=== PATIENT | male | born 1950 | race Hispanic/Latino ===

== ENCOUNTER 2017-09-21 13:46 | Inpatient (IN) | payer MEDICAID, MEDICARE ==
[2017-09-21] MEDS ORDERED: Albuterol-Ipratrop 3 mg / 0.5 (3 ml) UD ONE (13:53)
[2017-09-21] MEDS ORDERED: Albuterol-Ipratrop 3 mg / 0.5 (3 ml) UD IH STA ×3 (13:54→13:55)
--- NOTE | 2017-09-21 14:00 | ED PDOC ---
HPI: SOB/CHF/COPD Time Seen by Provider: 09/21/17 13:48 Chief Complaint (Nursing): Cough, Cold, Congestion Chief Complaint (Provider): Shortness of Breath History Per: Patient History/Exam Limitations: no limitations Onset/Duration Of Symptoms: Days (x3) Current Symptoms Are (Timing): Still Present Additional Complaint(s): Justin Santana is a 67 year old male with a history of asthma that presents to the ED with a chief complaint of shortness of breath associated with a nonproductive cough that he has been experiencing for the past three days. Patient reports that he ran out of his inhaler months ago. He denies any fever, chest pain, or leg swelling. Past Medical History Vital Signs: Last Vital Signs Temp Pulse 105 H 09/21/17 13:53 Resp 24 09/21/17 13:53 BP 154/97 H 09/21/17 13:53 Pulse Ox 95 09/21/17 14:03 - Medical History PMH: Asthma - Family History Family History: States: Unknown Family Hx - Home Medications Home Medications: Ambulatory Orders Medication Instructions Recorded No Known Home Med 09/21/17 - Allergies Allergies/Adverse Reactions: Allergies Allergy/AdvReac Type Severity Reaction Status Date / Time Unobtainable Allergy Verified 09/21/17 13:53 Review of Systems Constitutional: Negative for: Fever Cardiovascular: Negative for: Chest Pain, Edema (denies pedal edema) Respiratory: Positive for: Cough (non-productive), Shortness of Breath Physical Exam - Reviewed Nursing Documentation Reviewed: Yes Vital Signs Reviewed: Yes - Physical Exam Appears: Positive for: Non-toxic, No Acute Distress Head Exam: Positive for: ATRAUMATIC, NORMOCEPHALIC Skin: Positive for: Normal Color, Warm Eye Exam: Positive for: Normal appearance, EOMI, PERRL Cardiovascular/Chest: Positive for: Regular Rate, Rhythm. Negative for: Murmur Respiratory: Positive for: Rhonchi, Wheezing (expiratory wheezing), Respiratory Distress (Moderate). Negative for: Normal Breath Sounds Gastrointestinal/Abdominal: Positive for: Normal Exam, Soft. Negative for: Tenderness Extremity: Positive for: Normal ROM. Negative for: Tenderness, Swelling Neurologic/Psych: Positive for: Alert (awake, alert), Oriented (x3). Negative for: Motor/Sensory Deficits - Laboratory Results Result Diagrams: 09/21/17 14:00 09/21/17 14:00 - ECG O2 Sat by Pulse Oximetry: 95 (RA) Pulse Ox Interpretation: Normal Medical Decision Making Medical Decision Making: Impression: Asthma Exacerbation Plan: * Chest X-Ray * EKG * CMP * CBC * ABG * Troponin I * Duoneb, three tx of 3 ml INH * Solumedrol 125 mg IV * Reevaluation EKG shows sinus tachycardia at 102 bpm with no acute ST changes. Scribe Attestation: Documented by Ann Marie Hernandez, acting as a scribe for Kareem Walton MD. Provider Scribe Attestation: All medical record entries made by the Scribe were at my direction and personally dictated by me. I have reviewed the chart and agree that the record accurately reflects my personal performance of the history, physical exam, medical decision making, and the department course for this patient. I have also personally directed, reviewed, and agree with the discharge instructions and disposition. Disposition - Clinical Impression Clinical Impression: COPD exacerbation - Patient ED Disposition Is Patient to be Admitted: Yes - Disposition Disposition Time: 15:16 Condition: FAIR Forms: [employer] (Tajik) - Pt Status Changed To: Hospital Disposition Of: Observation - POA Present On Arrival: None
[2017-09-21 14:05] LABS: BASO # 0.1 K/uL (0.0-0.2); BASO % 0.9 % (0.0-2.0); EOS % 7.8 % (0.0-4.0); HEMATOCRIT 41.5 % (35.0-51.0); LYMPH # 1.3 K/uL (1.0-4.3); LYMPH % 10.3 % (20.0-40.0); MEAN CELL VOLUME 83.3 fl (80.0-94.0); MEAN CORPUSCULAR HEMOGLOBIN 27.8 pg (27.0-31.0); MEAN CORPUSCULAR HGB CONC 33.4 g/dL (33.0-37.0); MEAN PLATELET VOLUME 7.7 fl (7.2-11.7); MONO # 1.2 K/uL (0.0-0.8); MONO % 9.4 % (0.0-10.0); NEUT % 71.6 % (50.0-75.0); RED CELL DISTRIBUTION WIDTH 14.5 % (11.5-14.5); WHITE BLOOD COUNT 12.5 K/uL (4.8-10.8)
[2017-09-21] MEDS ORDERED: Sodium Chloride 0.9% 1,000 ML IV STA (14:11)
[2017-09-21 14:14] LABS: ALB/GLOB RATIO 1.3 (1.0-2.1); ALKALINE PHOSPHATASE 119 U/L (38-126); ALT/SGPT 24 U/L (21-72); AST/SGOT 17 U/L (17-59); BILIRUBIN,TOTAL 0.6 mg/dl (0.2-1.3); BLOOD UREA NITROGEN 16 mg/dl (9-20); CALCIUM 8.8 mg/dL (8.4-10.2); CARBON DIOXIDE 29 mmol/L (22-30); CHLORIDE 106 mmol/L (98-107); GFR AFRICAN-AMERICAN > 60; GLUCOSE,RANDOM 100 mg/dL (75-110); POTASSIUM 4.1 MMOL/L (3.6-5.0); SODIUM 148 mmol/l (132-148); TOTAL PROTEIN 7.6 G/DL (6.3-8.2)
[2017-09-21 14:21] LABS: ABG ALLEN TEST YES; ARTERIAL BLOOD GAS HCO3 27.2 mmol/L (21-28); ARTERIAL BLOOD GAS MODE 6L NEB TX; ARTERIAL BLOOD GAS O2 CAPACITY 18.6 mL/dL (16-24); ARTERIAL BLOOD GAS O2 CONTENT 18.3 ML/dL (15-23); ARTERIAL BLOOD GAS PO2 75 mm/Hg (80-100); ARTERIAL BLOOD HGB O2 SAT 93.5 % (95.0-98.0); CARBOXYHEMOGLOBIN 3.2 % (0.5-1.5); HHB 1.4 % (0.0-5.0); METHEMOGLOBIN 1.9 % (0.0-3.0)
--- NOTE | 2017-09-21 14:25 | RAD ---
HISTORY: cough COMPARISON: No prior. FINDINGS: LUNGS: The lungs are well inflated. There are increased interstitial markings in the lungs. No focal consolidation. PLEURA: No significant pleural effusion identified, no pneumothorax apparent. CARDIOVASCULAR: Normal. OSSEOUS STRUCTURES: No significant abnormalities. VISUALIZED UPPER ABDOMEN: Normal. OTHER FINDINGS: None. IMPRESSION: Findings are most compatible with COPD. No active pulmonary disease.
[2017-09-21] MEDS ORDERED: guaiFENesin 200 mg/10 ml Syrup UD PO PRN (15:38)
[2017-09-21] MEDS ORDERED: methylPREDNISolone 60 MG in Sodium Chloride 0.9% 50 ML IV SCH (15:45)
--- NOTE | 2017-09-21 16:04 | CP.PCM.HP ---
History of Present Illness - History of Present Illness History of Present Illness: CC: Shortness of breath This is a 67 year old male with a past medical history of asthma/COPD, long time smoker, who presents to the ED with the complaint of 3 days of worsening shortness of breath along with a nonproductive cough. The patient states that he has run of of his inhaler months ago. He says that the colder weather has made his breathing much worse yesterday and today. He denies any headache, fever , chest pains, leg pain or swelling, recent travel. In the ED, the patient was found to be saturating 92% on room air although he was only speaking 3 words between breaths. He was found to be diffusely wheezing and in moderate respiratory distress. He also complains of difficulty hearing out of his right ear. After nebulizer treatments and steroids, he felt improved but continues to have diffuse wheezing and shortness of breath. He is to be placed on observation for continued monitoring and treatment with duonebs and IV steroids. ROS as below Present on Admission - Present on Admission Any Indicators Present on Admission: No Review of Systems - Hematologic/Lymphatic Additional comments: GENERAL/CONSTITUTIONAL: The patient denies fever, fatigue, weakness, weight gain or weight loss. HEAD, EYES, EARS, NOSE AND THROAT: Eyes - The patient denies pain, redness, loss of vision, double or blurred vision, flashing lights or spots, dryness, Ears, nose, mouth and throat. + The patient admits to decreased hearing in the left ear. He admits to post nasal drip. The patient denies ringing in the ears, nosebleeds, loss of sense of smell, dry sinuses, sinusitis, CARDIOVASCULAR: The patient denies chest pain, chest pressure, or irregular heartbeats, RESPIRATORY: Admits to wheezing and The patient denies chronic dry cough, coughing up blood, coughing up mucus, wheezing, or shortness of breath. GASTROINTESTINAL: The patient denies decreased appetite, nausea, vomiting, vomiting blood or coffee ground material, heartburn, regurgitation, diarrhea, constipation, gas, blood in the stools, black tarry stools. GENITOURINARY: The patient denies difficult urination, pain or burning with urination, blood in the urine, frequency, or urgency MUSCULOSKELETAL: The patient denies arm, buttock, thigh or calf cramps. No joint or muscle pain. No muscle weakness or tenderness. No joint swelling, neck pain, back pain. SKIN: The patient denies easy bruising, skin redness, skin rash, hives, sensitivity to sun exposure, tightness, nodules or bumps, hair loss, color changes in the hands or feet with cold. NEUROLOGIC: The patient denies headache, dizziness, fainting, muscle spasm, loss of consciousness, sensitivity or pain in the hands and feet or memory loss. PSYCHIATRIC: The patient denies anxiety, depression, or thoughts of suicide. ENDOCRINE: The patient denies intolerance to hot or cold temperature, flushing, fingernail changes, increased thirst, increased salt intake or decreased sexual desire. HEMATOLOGIC/LYMPHATIC: The patient denies anemia, bleeding tendency or clotting tendency. ALLERGIC/IMMUNOLOGIC: The patient denies rhinitis, asthma, skin sensitivity, latex allergies or sensitivity. Past Patient History - Infectious Disease Hx of Infectious Diseases: None - Past Social History Smoking Status: Light Smoker < 10 Cigarettes Daily - CARDIAC Hx Cardiac Disorders: No - PULMONARY Hx Respiratory Disorders: Yes (asthma,copd) - NEUROLOGICAL Hx Neurological Disorder: No - HEENT Hx HEENT Problems: No - RENAL Hx Chronic Kidney Disease: No - ENDOCRINE/METABOLIC Hx Endocrine Disorders: No - HEMATOLOGICAL/ONCOLOGICAL Hx Blood Disorders: No - INTEGUMENTARY Hx Dermatological Problems: No - MUSCULOSKELETAL/RHEUMATOLOGICAL Hx Musculoskeletal Disorders: No - GENITOURINARY/GYNECOLOGICAL Hx Genitourinary Disorders: No - PSYCHIATRIC Hx Psychophysiologic Disorder: No - SURGICAL HISTORY Hx Surgeries: No - ANESTHESIA Hx Anesthesia: No Meds Allergies/Adverse Reactions: Allergies Allergy/AdvReac Type Severity Reaction Status Date / Time No Known Allergies Allergy Verified 09/21/17 15:41 Physical Exam - Additional Findings Additional findings: Physical exam: Constitutional- cooperative, awake, alert. Head- NCAT, PERRL Eye- PERRL, normal accommodation ENT- Left ear cerumen impaction. Poor dental hygeine. Some mild throat erythema Neck- normal inspection, supple, no JVD Respiratory- CTAB, no wheezes rales rhonchi Cardiovascular- RRR, +S1, +S2 no MRG GI/Abdominal- normal bowel sounds, soft, protuberant, no mass, no hsm Skin- warm, dry Extremities Exam- normal capillary refill, normal inspection Neurological Exam- alert, CN II-XII intact Psych- normal mood, normal affect Results - Vital Signs Recent Vital Signs: Last Vital Signs Temp Pulse 105 H 09/21/17 15:37 Resp 24 09/21/17 15:37 BP 154/97 H 09/21/17 15:37 Pulse Ox 95 09/21/17 15:17 - Labs Result Diagrams: 09/21/17 14:00 09/21/17 14:00 Labs: Laboratory Results - last 24 hr 09/21/17 09/21/17 09/21/17 14:00 14:00 14:14 WBC 12.5 H RBC 4.98 Hgb 13.9 Hct 41.5 MCV 83.3 MCH 27.8 MCHC 33.4 RDW 14.5 Plt Count 269 MPV 7.7 Neut % (Auto) 71.6 Lymph % (Auto) 10.3 L [place] % (Auto) 9.4 Eos % (Auto) 7.8 H Baso % (Auto) 0.9 Neut # 9.0 H Lymph # 1.3 [place] # 1.2 H Eos # 1.0 H Baso # 0.1 pCO2 46 H pO2 75 L HCO3 27.2 ABG pH 7.40 ABG Total CO2 29.9 H ABG O2 Saturation 98.5 H ABG O2 Content 18.3 ABG Base Excess 3.0 ABG Hemoglobin 13.9 ABG Carboxyhemoglobin 3.2 H POC ABG HHb (Measured) 1.4 ABG Methemoglobin 1.9 ABG O2 Capacity 18.6 [place] Test Yes A-a O2 Difference 181.0 Hgb O2 Saturation 93.5 L Vent Mode 6l neb tx FiO2 44.0 Sodium 148 Potassium 4.1 Chloride 106 Carbon Dioxide 29 Anion Gap 17 BUN 16 Creatinine 1.0 Est GFR ( Amer) > 60 Est GFR (Non-Af Amer) > 60 Random Glucose 100 Calcium 8.8 Total Bilirubin 0.6 AST 17 ALT 24 Alkaline Phosphatase 119 Troponin I < 0.0120 Total Protein 7.6 Albumin 4.2 Globulin 3.4 Albumin/Globulin Ratio 1.3 Influenza Typ A,B (EIA) 09/21/17 15:30 WBC RBC Hgb Hct MCV MCH MCHC RDW Plt Count MPV Neut % (Auto) Lymph % (Auto) [place] % (Auto) Eos % (Auto) Baso % (Auto) Neut # Lymph # [place] # Eos # Baso # pCO2 pO2 HCO3 ABG pH ABG Total CO2 ABG O2 Saturation ABG O2 Content ABG Base Excess ABG Hemoglobin ABG Carboxyhemoglobin POC ABG HHb (Measured) ABG Methemoglobin ABG O2 Capacity [place] Test A-a O2 Difference Hgb O2 Saturation Vent Mode FiO2 Sodium Potassium Chloride Carbon Dioxide Anion Gap BUN Creatinine Est GFR ( Amer) Est GFR (Non-Af Amer) Random Glucose Calcium Total Bilirubin AST ALT Alkaline Phosphatase Troponin I Total Protein Albumin Globulin Albumin/Globulin Ratio Influenza Typ A,B (EIA) Negative for flu a/b Assessment & Plan - Assessment and Plan (Free Text) Plan: ASSESSMENT - Acute COPD exacerbation without evidence of infection - Left ear cerumen impaction - Severe obesity, BMI 40.4 - history of tobacco abuse PLAN - Tele/observation - Continue IV Solu medrol 60 mg IV q8 hours - Duonebs q 6 hours around the clock - Guaifenesin 200 mg po q6h PRN cough/congestion - Flonase 1 spray BYRON BID - Continue IV hydration overnight with normal saline at 100 cc/hour - Nasal cannula 2 liters, with pulse ox checks q 8 hours - Debrox 5 drops BID for cerumen impaction - Heparin SQ 5000 units q 12 hours - Estimated LOS < 24 hours
--- NOTE | 2017-09-21 16:32 | CARD ---
APPROVED REPORT EKG Measurement Heart [id number] <Conclusion> Sinus tachycardia Otherwise normal ECG
[2017-09-21] MEDS: Carbamide Peroxide OTIC SOLUTION AS SCH (19:34)
[2017-09-21] MEDS: Albuterol-Ipratrop 3 mg / 0.5 (3 ml) UD INH SCH (21:00)
[2017-09-22 06:15] LABS: HEMATOCRIT 38.7 % (35.0-51.0); MEAN CELL VOLUME 84.5 fl (80.0-94.0); MEAN CORPUSCULAR HEMOGLOBIN 27.6 pg (27.0-31.0); MEAN CORPUSCULAR HGB CONC 32.6 g/dL (33.0-37.0); RED CELL DISTRIBUTION WIDTH 14.4 % (11.5-14.5); WHITE BLOOD COUNT 13.2 K/uL (4.8-10.8)
[2017-09-22 06:19] LABS: BLOOD UREA NITROGEN 20 mg/dl (9-20); CALCIUM 8.5 mg/dL (8.4-10.2); CARBON DIOXIDE 25 mmol/L (22-30); CHLORIDE 108 mmol/L (98-107); GFR AFRICAN-AMERICAN > 60; GLUCOSE,RANDOM 204 mg/dL (75-110); POTASSIUM 3.8 MMOL/L (3.6-5.0); SODIUM 144 mmol/l (132-148)
[2017-09-22] MEDS: Albuterol-Ipratrop 3 mg / 0.5 (3 ml) UD INH SCH ×4 (07:42→19:30)
[2017-09-22] MEDS: Carbamide Peroxide OTIC SOLUTION AS SCH ×2 (08:39→17:02)
[2017-09-22] MEDS ORDERED: Azithromycin 500 MG in Sodium Chloride 0.9% 250 ML IVPB STA (11:55)
[2017-09-22] MEDS ORDERED: cefTRIAXone IV 1 gm in Dextros 50 ML IVPB STA (11:58)
[2017-09-22] MEDS ORDERED: Sodium Chloride 3% for Inhalation 4 ML VIAL.NEB IH PRN (12:16)
--- NOTE | 2017-09-22 12:16 | CP.PCM.PN ---
Subjective - Date & Time of Evaluation Date of Evaluation: 09/22/17 Time of Evaluation: 11:30 - Subjective Subjective: Pt feels better however still with cough and SOB complains of generalized bodyaches denies CP no abd pain no headache stopped smoking a few days ago when he started getting SOB Objective - Vital Signs/Intake and Output Vital Signs (last 24 hours): Temp Pulse Resp BP Pulse Ox 97.6 F 87 18 161/91 H 93 L 09/22/17 08:11 09/22/17 09:00 09/22/17 08:11 09/22/17 08:11 09/22/17 08:11 - Medications Medications: Current Medications Acetaminophen (Tylenol 325mg Tab) 650 mg PO Q6 PRN PRN Reason: Pain, Mild (1-3) Last Admin: 09/22/17 08:57 Dose: 650 mg Albuterol/Ipratropium (Duoneb 3 Mg/0.5 Mg (3 Ml) Ud) 3 ml INH RQID SALLY Last Admin: 09/22/17 11:05 Dose: 3 ml Carbamide Peroxide (Debrox Ear Drops) 5 drop BID SALLY Last Admin: 09/22/17 08:39 Dose: 5 drop Fluticasone Propionate (Flonase) 1 spr BYRON BID SALLY Last Admin: 09/22/17 08:39 Dose: 1 spr Guaifenesin (Robitussin) 200 mg PO Q6 PRN PRN Reason: Cough Heparin Sodium (Porcine) (Heparin) 5,000 units SC Q12 SALLY PRN Reason: Protocol Last Admin: 09/22/17 08:40 Dose: Not Given Azithromycin 500 mg/ Sodium (Chloride) 250 mls @ 250 mls/hr IVPB STAT STA PRN Reason: Protocol Stop: 09/22/17 12:54 Ceftriaxone Sodium (Rocephin Iv 1 Gm Duplex) 50 mls @ 50 mls/hr IVPB STAT STA PRN Reason: Protocol Stop: 09/22/17 12:57 Ceftriaxone Sodium (Rocephin Iv 1 Gm Duplex) 50 mls @ 50 mls/hr IVPB DAILY SALLY PRN Reason: Protocol Azithromycin 500 mg/ Sodium (Chloride) 250 mls @ 250 mls/hr IVPB DAILY SALLY PRN Reason: Protocol Methylprednisolone (Solu-Medrol) 60 mg IV Q8H SALLY Last Admin: 09/22/17 08:41 Dose: 60 mg - Labs Labs: 09/22/17 05:10 09/22/17 05:10 - Constitutional Appears: No Acute Distress, Older Than Stated Age - Head Exam Head Exam: NORMAL INSPECTION, NORMOCEPHALIC - Eye Exam Eye Exam: EOMI, Normal appearance Pupil Exam: NORMAL ACCOMODATION - ENT Exam ENT Exam: Mucous Membranes Moist, Normal External Ear Exam - Neck Exam Neck Exam: Full ROM. absent: Meningismus - Respiratory Exam Respiratory Exam: Rhonchi, Wheezes, NORMAL BREATHING PATTERN. absent: Respiratory Distress - Cardiovascular Exam Cardiovascular Exam: REGULAR RHYTHM, +S1, +S2 - GI/Abdominal Exam GI & Abdominal Exam: Soft, Normal Bowel Sounds. absent: Tenderness - Extremities Exam Extremities Exam: Full ROM, Normal Capillary Refill. absent: Calf Tenderness, Pedal Edema - Back Exam Back Exam: Full ROM. absent: CVA tenderness (L), CVA tenderness (R), vertebral tenderness - Neurological Exam Neurological Exam: Alert, Awake, CN II-XII Intact, Oriented x3 Neuro motor strength exam: Left Upper Extremity: 5, Right Upper Extremity: 5, Left Lower Extremity: 5, Right Lower Extremity: 5 - Psychiatric Exam Psychiatric exam: Normal Affect, Normal Mood - Skin Skin Exam: Dry, Normal Color, Warm Assessment and Plan (1) COPD exacerbation Status: Acute (2) Acute bronchitis Status: Acute (3) HTN (hypertension) Status: Chronic (4) DVT prophylaxis Status: Acute - Assessment and Plan (Free Text) Assessment: 67 y/o gent , smoker, came in because of fever, cough and SOB, found to be wheezing and and sat 92% on RA. (1) COPD exacerbation Status: Acute pt persistently wheezing and with cough but states better cont IV Solumedrol cont RTC Duoneb (2) Acute bronchitis r/o CAP Status: Acute CXR : COPD chnages, no infiltrate Pt came in with cough , fever , leukocytosis and dyspnea rpt CXR start IV Azithro and Ceftriaxone (3) HTN (hypertension) Status: Chronic start Norvasc 5 mg daily (4) DVT prophylaxis Status: Acute Lovenox
--- NOTE | 2017-09-22 16:19 | RAD ---
HISTORY: cough, fever r/o PNA COMPARISON: 09/21/2017 TECHNIQUE: Chest PA and lateral FINDINGS: LUNGS: Linear scar/atelectasis at lateral left lung base. No pulmonary infiltrate. PLEURA: No significant pleural effusion identified. No pneumothorax apparent. CARDIOVASCULAR: Normal. OSSEOUS STRUCTURES: No significant abnormalities. VISUALIZED UPPER ABDOMEN: Normal. OTHER FINDINGS: None. IMPRESSION: No active disease.
[2017-09-23] MEDS: Albuterol-Ipratrop 3 mg / 0.5 (3 ml) UD INH SCH ×4 (07:41→19:25)
--- NOTE | 2017-09-23 07:45 | PQF GENQUE ---
This form is a permanent part of the medical record 09/23/17 Dr. Chan, Please clarify the TYPE and ACUITY of Asthma if known. Patient with a history of Asthma/ COPD presents with worsening SOB and nonproductive cough. Ran out of his inhaler months ago. Found to be diffusely wheezing .Temp 100.1, WBC 12.5, CXR: No acitve disease. Treated with O2, Nebulizers, Solumedrol, IVAB and Flonase. Clarification of your documentation is requested to better reflect the severity of illness and intensity of treatment of your patient. Indicators present [] Specify: [] [] Specify: [] [] Specify: [] [] Specify: [] Location in the medical record that reflects the above clinical findings: [] Treatment Provided: [] PHYSICIAN'S RESPONSE 1. Please clarify type of asthma: [] Childhood [] Cough variant [] Exercise induced [] Late onset [x] Mild intermittent [] Mild persistent [] Moderate persistent [] Severe persistent [] With bronchitis(please clarify acuity of bronchitis) [] With chronic lung disease (please document specific chronic lung disease ) [] Other (please specify) [] Clinically unable to determine [] Unknown 2. Please clarify acuity of asthma: [] Uncomplicated [] With exacerbation(acute) [] With status asthmaticus [] Other (please specify) [x] Clinically unable to determine [] Unknown Based on your medical judgment of the clinical indicators outlined above please clarify the following: [] Practitioner response [] If unable to determine, please check the box, sign and date. Present On Admission (POA) Indicator: [] Present at the time of admission [] Not present at the time of admission [] Clinically Undetermined In responding to this query, please exercise your independent professional judgment. The fact that a question is asked does not imply that any particular answer is desired or expected. Thank you for your clarification on this documentation. If you have any questions please call:ext [phone] * Thank you, Jael Maria RN CDMP MTDD
[2017-09-23] MEDS: Azithromycin 500 MG in Sodium Chloride 0.9% 250 ML IVPB SCH (10:01)
[2017-09-23] MEDS: Carbamide Peroxide OTIC SOLUTION AS SCH ×2 (10:02→17:39)
[2017-09-23] MEDS: cefTRIAXone IV 1 gm in Dextros 50 ML IVPB SCH (10:04)
--- NOTE | 2017-09-23 11:26 | CP.PCM.PN ---
Subjective - Date & Time of Evaluation Date of Evaluation: 09/23/17 Time of Evaluation: 11:00 - Subjective Subjective: Today Mr. Santana is still complaining of some shortness of breath. He continues to have significant wheezing bilaterally. He says that his breathing has improved somewhat with the nebulizer treatments and IV steroids. He was able to saturate 92% on room air today during walking trial. He denies any chest pain, weakness, headache. Due to his significant wheezing he will require at least another 24 hours of IV steroids and continued nebulizer therapy. Objective - Vital Signs/Intake and Output Vital Signs (last 24 hours): Temp Pulse Resp BP Pulse Ox 97.7 F 74 18 152/89 H 97 09/23/17 08:00 09/23/17 10:03 09/23/17 08:00 09/23/17 10:03 09/23/17 08:00 - Medications Medications: Current Medications Acetaminophen (Tylenol 325mg Tab) 650 mg PO Q6 PRN PRN Reason: Pain, Mild (1-3) Last Admin: 09/22/17 08:57 Dose: 650 mg Albuterol/Ipratropium (Duoneb 3 Mg/0.5 Mg (3 Ml) Ud) 3 ml INH RQID [facility] Last Admin: 09/23/17 11:01 Dose: 3 ml Amlodipine Besylate (Norvasc) 5 mg PO DAILY SALLY Last Admin: 09/23/17 10:03 Dose: 5 mg Carbamide Peroxide (Debrox Ear Drops) 5 drop BID SALLY Last Admin: 09/23/17 10:02 Dose: 5 drop Fluticasone Propionate (Flonase) 1 spr BYRON BID SALLY Last Admin: 09/23/17 10:03 Dose: 1 spr Guaifenesin (Robitussin) 200 mg PO Q6 PRN PRN Reason: Cough Heparin Sodium (Porcine) (Heparin) 5,000 units SC Q12 SALLY PRN Reason: Protocol Last Admin: 09/23/17 10:03 Dose: Not Given Ceftriaxone Sodium (Rocephin Iv 1 Gm Duplex) 50 mls @ 50 mls/hr IVPB DAILY SALLY PRN Reason: Protocol Last Admin: 09/23/17 10:04 Dose: 50 mls/hr Azithromycin 500 mg/ Sodium (Chloride) 250 mls @ 250 mls/hr IVPB DAILY SALLY PRN Reason: Protocol Last Admin: 10/31/17 10:01 Dose: 250 mls/hr Ibuprofen (Motrin Tab) 400 mg PO Q6 PRN PRN Reason: Pain, moderate (4-7) Methylprednisolone (Solu-Medrol) 40 mg IVP Q8H SALLY - Labs Labs: 09/22/17 05:10 09/22/17 05:10 - Additional Findings Additional findings: Physical exam: Constitutional- cooperative, awake, alert. Head- NCAT, PERRL Eye- PERRL, normal accommodation ENT- Poor dental hygeine. MMM Neck- normal inspection, supple, no JVD Respiratory- CTAB, bilateral wheezing, persistent, no rhonchi, no rales Cardiovascular- RRR, +S1, +S2 no MRG GI/Abdominal- normal bowel sounds, soft, protuberant, no mass, no hsm Skin- warm, dry Extremities Exam- normal capillary refill, normal inspection Neurological Exam- alert, CN II-XII intact Psych- normal mood, normal affect Assessment and Plan - Assessment and Plan (Free Text) Plan: Assessment and Plan (1) COPD exacerbation Status: Acute (2) Acute bronchitis Status: Acute (3) HTN (hypertension) Status: Chronic (4) DVT prophylaxis Status: Acute (5) Obesity This is a 37 year old male with pmh of asthma, who came in because of fever, cough and SOB, found to be wheezing and and sat 92% on room air. He is slowly improving with treatment but continues to have persistent wheezing (1) COPD exacerbation Status: Acute pt persistently wheezing and with cough but states better cont IV Solumedrol- decrease to 40 mg IV q8h to taper Continue duoneb q 6 hours around the clock (2) Acute bronchitis r/o CAP Status: Acute CXR : COPD chnages, no infiltrate . Repeat CXR shows the same; no evidence of infiltrate or pleural effusion Pt came in with cough , fever , leukocytosis and dyspnea Treating with Azithromycin and Rocephin (3) HTN (hypertension) Status: Chronic continue Norvasc 5 mg po daily May need to titrate up if htn continues to persist- may be secondary to iv steroids (4) DVT prophylaxis Status: Acute Lovenox (5) Obesity
[2017-09-23] MEDS: MethylPREDNISolone 40 mg Vial IVP SCH ×2 (12:26→20:26)
[2017-09-24] MEDS: MethylPREDNISolone 40 mg Vial IVP SCH ×3 (03:36→21:01)
[2017-09-24 06:12] LABS: HEMATOCRIT 38.1 % (35.0-51.0); MEAN CELL VOLUME 84.3 fl (80.0-94.0); MEAN CORPUSCULAR HGB CONC 33.3 g/dL (33.0-37.0); RED CELL DISTRIBUTION WIDTH 14.3 % (11.5-14.5); WHITE BLOOD COUNT 21.8 K/uL (4.8-10.8)
[2017-09-24] MEDS: Albuterol-Ipratrop 3 mg / 0.5 (3 ml) UD INH SCH ×4 (07:55→19:37)
[2017-09-24 08:28] LABS: BLOOD UREA NITROGEN 34 mg/dl (9-20); CALCIUM 8.7 mg/dL (8.4-10.2); CARBON DIOXIDE 29 mmol/L (22-30); CHLORIDE 103 mmol/L (98-107); GFR AFRICAN-AMERICAN > 60; GLUCOSE,RANDOM 183 mg/dL (75-110); SODIUM 141 mmol/l (132-148)
[2017-09-24] MEDS: Carbamide Peroxide OTIC SOLUTION AS SCH ×2 (08:54→17:19)
[2017-09-24] MEDS: Azithromycin 500 MG in Sodium Chloride 0.9% 250 ML IVPB SCH (08:57)
[2017-09-24] MEDS: cefTRIAXone IV 1 gm in Dextros 50 ML IVPB SCH (11:21)
--- NOTE | 2017-09-24 12:55 | CP.PCM.PN ---
Subjective - Date & Time of Evaluation Date of Evaluation: 09/24/17 Time of Evaluation: 10:00 - Subjective Subjective: Patient seen and examined bedside.Feeling better but still with SOB . Bilateral diffuse rhonchi on auscultation Saturating 93-94 % on 2 l O2 via NC With few coughing spells unable to expectorate No fever Feels tremulous with breathing treatment Objective - Vital Signs/Intake and Output Vital Signs (last 24 hours): Temp Pulse Resp BP Pulse Ox 97.3 F L 80 18 154/72 H 94 L 09/24/17 12:25 09/24/17 12:25 09/24/17 12:25 09/24/17 12:25 09/24/17 12:25 - Medications Medications: Current Medications Acetaminophen (Tylenol 325mg Tab) 650 mg PO Q6 PRN PRN Reason: Pain, Mild (1-3) Last Admin: 09/22/17 08:57 Dose: 650 mg Albuterol/Ipratropium (Duoneb 3 Mg/0.5 Mg (3 Ml) Ud) 3 ml INH RQID [facility] Last Admin: 09/24/17 11:03 Dose: 3 ml Amlodipine Besylate (Norvasc) 10 mg PO DAILY [facility] Carbamide Peroxide (Debrox Ear Drops) 5 drop BID [facility] Last Admin: 09/24/17 08:54 Dose: 5 drop Fluticasone Propionate (Flonase) 1 spr BYRON BID [facility] Last Admin: 09/24/17 08:54 Dose: 1 spr Guaifenesin (Robitussin) 200 mg PO Q6 PRN PRN Reason: Cough Heparin Sodium (Porcine) (Heparin) 5,000 units SC Q12 [facility] PRN Reason: Protocol Last Admin: 09/24/17 09:11 Dose: 5,000 units Ceftriaxone Sodium (Rocephin Iv 1 Gm Duplex) 50 mls @ 50 mls/hr IVPB DAILY [facility] PRN Reason: Protocol Last Admin: 09/24/17 11:21 Dose: 50 mls/hr Azithromycin 500 mg/ Sodium (Chloride) 250 mls @ 250 mls/hr IVPB DAILY [facility] PRN Reason: Protocol Last Admin: 09/24/17 08:57 Dose: 250 mls/hr Ibuprofen (Motrin Tab) 400 mg PO Q6 PRN PRN Reason: Pain, moderate (4-7) Last Admin: 09/24/17 08:50 Dose: 400 mg Methylprednisolone (Solu-Medrol) 40 mg IVP Q8H [facility] Last Admin: 09/24/17 11:22 Dose: 40 mg - Labs Labs: 09/24/17 05:50 09/24/17 05:50 - Constitutional Appears: Non-toxic, No Acute Distress, Other (obese) - Head Exam Head Exam: ATRAUMATIC, NORMAL INSPECTION, NORMOCEPHALIC - Eye Exam Eye Exam: EOMI, Normal appearance, PERRL Pupil Exam: NORMAL ACCOMODATION - ENT Exam ENT Exam: Mucous Membranes Moist, Normal Exam - Neck Exam Neck Exam: Full ROM, Normal Inspection - Respiratory Exam Respiratory Exam: Prolonged Expiratory Phase, Rhonchi (diffuse bilaterally ). absent: Accessory Muscle Use, Respiratory Distress - Cardiovascular Exam Cardiovascular Exam: REGULAR RHYTHM, RRR, +S1, +S2. absent: JVD - GI/Abdominal Exam GI & Abdominal Exam: Soft, Normal Bowel Sounds. absent: Distended, Guarding, Tenderness, Rebound - Rectal Exam Rectal Exam: Deferred - Extremities Exam Extremities Exam: Full ROM, Normal Capillary Refill, Normal Inspection. absent : Calf Tenderness, Pedal Edema - Back Exam Back Exam: NORMAL INSPECTION - Neurological Exam Neurological Exam: Alert, Awake, CN II-XII Intact, Oriented x3 - Psychiatric Exam Psychiatric exam: Normal Affect, Normal Mood - Skin Skin Exam: Dry, Intact, Normal Color, Warm Assessment and Plan - Assessment and Plan (Free Text) Assessment: 67 year old male with PMH COPD/ asthma chronic smoker who does not follow up with any doctor and had ran out of his Albuterol pupm presented with worsening 3 day history of SOB, non productive cough and diffuse bilateral wheezing with o2Sat 92 %. patient admitted wuith COPD exacerbation , started on Duonebs, Rocephin and Zithromax IV, Solumderol 40 mg Iv Q8. currently improving but still with SOB and diffuse bilateral rhonchi 1.COPD exacerbation Acute diffuse bilateral rhonchi present and with cough but states better cont IV Solumedrol 40 mg IV q8h , Duonebs CXR showed no infiltrate Patient is a chronixc smoker . 30 year/pack Continue Rocephin and Zithromax Will order CT chest w/o contrast 2.Acute bronchitis Acute CXr showed no infiltrate continue rocephin and zithromax start Mucinex 3.HTN (hypertension) uncontrolled increased Norvasc to 10 mg po daily 4.DVT prophylaxis Acute Lovenox 5.Obesity BMI 40 6. Leukocytosis Most likely steroid induced Ordered Ct chest
[2017-09-24] MEDS: guaiFENesin 600 mg ER Tab PO SCH (21:01)
--- NOTE | 2017-09-24 22:11 | CT ---
EXAM: CT Chest Without Intravenous Contrast EXAM DATE/TIME: 09/24/2017 5:49 PM CLINICAL HISTORY: 67 years old, male; Signs and symptoms; Other: Asthma, copd exacerbation TECHNIQUE: Axial computed tomography images of the chest without intravenous contrast. All CT scans at this facility use one or more dose reduction techniques, viz.: automated exposure control; ma/kV adjustment per patient size (including targeted exams where dose is matched to indication; i.e. head); or iterative reconstruction technique. Coronal and sagittal reformatted images were created and reviewed. COMPARISON: There are no prior studies for comparison. FINDINGS: Artifacts: Motion artifact degrades image quality. Streak artifact degrades image quality. Lungs and pleural spaces: Trachea and main bronchi are patent. The lungs are hyperinflated. There is medial left upper lobe volume loss. The there is dependent atelectasis. There is subsegmental atelectasis at the left base. There are no effusions. Heart and vasculature: The the heart is mildly enlarged. There are coronary artery calcifications.Aorta and main pulmonary artery are normal in caliber. There are vascular calcifications. Mediastinum: The esophagus is unremarkable. There is a small hiatal hernia. There are no pathologically enlarged mediastinal nodes.Winifred are not optimally evaluated without contrast material. Thyroid: The thyroid is asymmetrically enlarged. There is a 2.5 x 2.7 heterogeneous right thyroid nodule. There are additional smaller nodules.Right lobe of the thyroid extends into the upper mediastinum Bones/joints: There are degenerative changes in the osseus structures. Soft tissues: unremarkable Upper abdomen: There are no acute abnormalities in the visualized portion of the abdomen. IMPRESSION: Limited by patient motion, left upper lobe atelectasis acute versus chronic; hyperinflation; right thyroid nodules; mild cardiomegaly and atherosclerotic disease Thyroid ultrasound suggested for further evaluation as clinically indicated
[2017-09-25] MEDS: MethylPREDNISolone 40 mg Vial IVP SCH ×2 (04:24→11:13)
[2017-09-25 05:31] VITALS: RESP 20
[2017-09-25 05:40] LABS: ABG ALLEN TEST YES; ARTERIAL BLOOD GAS HCO3 29.2 mmol/L (21-28); ARTERIAL BLOOD GAS O2 CAPACITY 17.6 mL/dL (16-24); ARTERIAL BLOOD GAS O2 CONTENT 17.1 ML/dL (15-23); ARTERIAL BLOOD GAS PH 7.44 (7.35-7.45); ARTERIAL BLOOD GAS PO2 70 mm/Hg (80-100); ARTERIAL BLOOD HGB O2 SAT 92.9 % (95.0-98.0); CARBOXYHEMOGLOBIN 2.6 % (0.5-1.5); HHB 2.5 % (0.0-5.0)
[2017-09-25 06:15] LABS: HEMATOCRIT 39.8 % (35.0-51.0); MEAN CELL VOLUME 84.2 fl (80.0-94.0); MEAN CORPUSCULAR HEMOGLOBIN 27.4 pg (27.0-31.0); MEAN CORPUSCULAR HGB CONC 32.5 g/dL (33.0-37.0); RED CELL DISTRIBUTION WIDTH 14.1 % (11.5-14.5); WHITE BLOOD COUNT 19.1 K/uL (4.8-10.8)
[2017-09-25 06:37] LABS: BLOOD UREA NITROGEN 35 mg/dl (9-20); CALCIUM 8.1 mg/dL (8.4-10.2); CARBON DIOXIDE 26 mmol/L (22-30); CHLORIDE 103 mmol/L (98-107); GFR AFRICAN-AMERICAN > 60; GLUCOSE,RANDOM 180 mg/dL (75-110); POTASSIUM 3.9 MMOL/L (3.6-5.0); SODIUM 142 mmol/l (132-148)
[2017-09-25] MEDS: Albuterol-Ipratrop 3 mg / 0.5 (3 ml) UD INH SCH (07:48)
[2017-09-25] MEDS: guaiFENesin 600 mg ER Tab PO SCH (08:13)
[2017-09-25] MEDS: Carbamide Peroxide OTIC SOLUTION AS SCH (08:14)
[2017-09-25] MEDS: cefTRIAXone IV 1 gm in Dextros 50 ML IVPB SCH (08:15)
[2017-09-25] MEDS: Azithromycin 500 MG in Sodium Chloride 0.9% 250 ML IVPB SCH (10:18)
[2017-09-25] MEDS ORDERED: Albuterol HFA 90 mcg/actuation (8 g) INH PRN (10:48)
[2017-09-25 12:05] VITALS: BP 159/90; PULSE 90; TEMP 97.6; O2SAT 97
--- NOTE | 2017-09-25 13:56 | CP.PCM.DIS ---
Provider - Provider Date of Admission: 09/22/17 12:07 Attending physician: Gustavo Hogan DO Time Spent in preparation of Discharge (in minutes): 25 Hospital Course - Lab Results Lab Results: Micro Results 09/23/17 10:00 Sputum Gram Stain - Final Most Recent Lab Values WBC 19.1 K/uL (4.8-10.8) H 09/25/17 05:45 RBC 4.73 Mil/uL (4.40-5.90) 09/25/17 05:45 Hgb 13.0 g/dL (12.0-18.0) 09/25/17 05:45 Hct 39.8 % (35.0-51.0) 09/25/17 05:45 MCV 84.2 fl (80.0-94.0) 09/25/17 05:45 MCH 27.4 pg (27.0-31.0) 09/25/17 05:45 MCHC 32.5 g/dL (33.0-37.0) L 09/25/17 05:45 RDW 14.1 % (11.5-14.5) 09/25/17 05:45 Plt Count 344 K/uL (130-400) 09/25/17 05:45 MPV 7.7 fl (7.2-11.7) 09/21/17 14:00 Neut % (Auto) 71.6 % (50.0-75.0) 09/21/17 14:00 Lymph % (Auto) 10.3 % (20.0-40.0) L 09/21/17 14:00 [place] % (Auto) 9.4 % (0.0-10.0) 09/21/17 14:00 Eos % (Auto) 7.8 % (0.0-4.0) H 09/21/17 14:00 Baso % (Auto) 0.9 % (0.0-2.0) 09/21/17 14:00 Neut # 9.0 K/uL (1.8-7.0) H 09/21/17 14:00 Lymph # 1.3 K/uL (1.0-4.3) 09/21/17 14:00 [place] # 1.2 K/uL (0.0-0.8) H 09/21/17 14:00 Eos # 1.0 K/uL (0.0-0.7) H 09/21/17 14:00 Baso # 0.1 K/uL (0.0-0.2) 09/21/17 14:00 pCO2 45 mm/Hg (35-45) 09/25/17 05:32 pO2 70 mm/Hg (80-100) L 09/25/17 05:32 HCO3 29.2 mmol/L (21-28) H 09/25/17 05:32 ABG pH 7.44 (7.35-7.45) 09/25/17 05:32 ABG Total CO2 32.0 mmol/L (22-28) H 09/25/17 05:32 ABG O2 Saturation 97.4 % (95-98) 09/25/17 05:32 ABG O2 Content 17.1 ML/dL (15-23) 09/25/17 05:32 ABG Base Excess 5.6 mmol/L (-2.0-3.0) H 09/25/17 05:32 ABG Hemoglobin 13.1 g/dL (11.7-17.4) 09/25/17 05:32 ABG Carboxyhemoglobin 2.6 % (0.5-1.5) H 09/25/17 05:32 POC ABG HHb (Measured) 2.5 % (0.0-5.0) 09/25/17 05:32 ABG Methemoglobin 2.0 % (0.0-3.0) 09/25/17 05:32 ABG O2 Capacity 17.6 mL/dL (16-24) 09/25/17 05:32 Sylvain Test Yes 09/25/17 05:32 A-a O2 Difference 73.0 mm/Hg 09/25/17 05:32 Hgb O2 Saturation 92.9 % (95.0-98.0) L 09/25/17 05:32 Vent Mode 6l neb tx 09/21/17 14:14 FiO2 28.0 % 09/25/17 05:32 Sodium 142 mmol/l (132-148) 09/25/17 05:45 Potassium 3.9 MMOL/L (3.6-5.0) 09/25/17 05:45 Chloride 103 mmol/L (98-107) 09/25/17 05:45 Carbon Dioxide 26 mmol/L (22-30) 09/25/17 05:45 Anion Gap 17 (10-20) 09/25/17 05:45 BUN 35 mg/dl (9-20) H 09/25/17 05:45 Creatinine 0.8 mg/dL (0.8-1.5) 09/25/17 05:45 Est GFR ( Amer) > 60 09/25/17 05:45 Est GFR (Non-Af Amer) > 60 09/25/17 05:45 Random Glucose 180 mg/dL (75-110) H 09/25/17 05:45 Calcium 8.1 mg/dL (8.4-10.2) L 09/25/17 05:45 Total Bilirubin 0.6 mg/dl (0.2-1.3) 09/21/17 14:00 AST 17 U/L (17-59) 09/21/17 14:00 ALT 24 U/L (21-72) 09/21/17 14:00 Alkaline Phosphatase 119 U/L (38-126) 09/21/17 14:00 Troponin I < 0.0120 ng/mL (0.00-0.120) 09/21/17 14:00 Total Protein 7.6 G/DL (6.3-8.2) 09/21/17 14:00 Albumin 4.2 g/dL (3.5-5.0) 09/21/17 14:00 Globulin 3.4 gm/dL (2.2-3.9) 09/21/17 14:00 Albumin/Globulin Ratio 1.3 (1.0-2.1) 09/21/17 14:00 Influenza Typ A,B (EIA) Negative for flu a/b (NEGATIVE) 09/21/17 15:30 - Hospital Course Hospital Course: This is a 67 year old male with a past medical history of asthma/COPD, long time smoker, who presents to the ED with the complaint of 3 days of worsening shortness of breath along with a nonproductive cough. The patient states that he has run of of his inhaler months ago. He says that the colder weather has made his breathing much worse yesterday and today. In the ED, the patient was found to be saturating 92% on room air although he was only speaking 3 words between breaths. He was found to be diffusely wheezing and in moderate respiratory distress. He also complains of difficulty hearing out of his right ear. After nebulizer treatments and steroids, he felt improved but continued to have diffuse wheezing and shortness of breath.The patient was initally observation status but switched to inpatient due to continued shortness of breath. Today he states that he feels better. No wheezing today, but does have rhonchi bilaterally. The patient had a CT scan yesterday showing some atelectasis of the left upper lobe and hyperinflation which is consistent with his smoking history. The patient is saturating well on room air and is able to keep his oxygen saturation > 90% while ambulating on room air as well. He was discharged to home in stable condition today. Assessment: This is a 67 year old male with PMH COPD/ asthma chronic smoker who does not follow up with any doctor and had ran out of his Albuterol inhaler presented with worsening 3 day history of SOB, non productive cough and diffuse bilateral wheezing with o2 Sat 92 %. patient admitted with COPD exacerbation , started on Duonebs, was given Azithromycin and Rocephin for clinical pneumonia. He continued to improve during the course of his hospital stay. He was discharged to home in stable condition today. 1.COPD exacerbation- resolved Continues to have rhonchi,which is likely chronic Discharge with Albuterol HFA inhaler, Advair, Medrol Dose Pack Patient is a chronic smoker . 30 pack year history No need for outpatient antibiotics- no pneumonia on CT chest Ct chest shows no infiltrate- does have some atelectasis 2.Acute bronchitis- resolved Acute CXR and CT chest showed no infiltrate Continue Mucinex as outpatient 3.HTN (hypertension) continue Norvasc 10 mg po daily as outpatient 4.DVT prophylaxis Acute Lovenox 5.Obesity BMI 40 6. Leukocytosis Steroid induced 7. Tobacco abuse - Stressed to the patient that he must stop smoking immediately and needs to follow up with his PMD within 2 weeks for follow up. Patient verbalized agreement Discharge Exam - Head Exam Head Exam: ATRAUMATIC, NORMAL INSPECTION, NORMOCEPHALIC - Additional Findings Additional findings: Physical exam: Constitutional- cooperative, awake, alert. Head- NCAT, PERRL Eye- PERRL, normal accommodation ENT- normal exam, MMM. Neck- normal inspection, supple, no JVD Respiratory- CTAB, Bilateral coarse rhonchi, no wheezing or rales today Cardiovascular- RRR, +S1, +S2 no MRG GI/Abdominal- normal bowel sounds, soft, no mass, no hsm Skin- warm, dry Extremities Exam- normal capillary refill, normal inspection Neurological Exam- alert, stable gait Psych- normal mood, normal affect Discharge Plan - Discharge Medications Prescriptions: Albuterol HFA [Ventolin HFA 90 mcg/actuation (8 g)] 1 puff INH RQ4 PRN #1 inhaler PRN Reason: Shortness Of Breath amLODIPine [Norvasc] 10 mg PO DAILY #30 tab Fluticasone Propionate [Flonase] 1 spr BYRON BID #1 bottle Fluticasone/Salmeterol 250/50 [Advair Diskus 250/50] 1 puff IH Q12 #1 inhaler guaiFENesin [Mucinex LA] 600 mg PO Q12 #60 tab Lisinopril [Zestril] 10 mg PO DAILY #30 tab - Follow Up Plan Condition: FAIR Disposition: HOME/ ROUTINE Instructions: COPD (Chronic Obstructive Pulmonary Disease) (DC), Hypertension ( DC), Hypertension (GEN) Additional Instructions: return to ED for worsening shortness of breath or worsening condition. F/u with PMD in 2 weeks or less. No smoking.
[2017-09-25] MEDS ORDERED: Fluticasone-Salmeterol 250-50mcg Diskus IH SCH (21:00)
== END 2017-09-25 13:50 | disposition home or self-care (01) | DRG 88 ==
LOC: H.ER 13:46 → H.ERHOLD 15:14 → H.TEL 16:52 → OBSVTOIN 09-22 12:07 → H.TEL 09-25 09:00
PROVIDERS: ADMIT Internal Medicine; ATTEND Internal Medicine
PROC: 3E0F73Z Introduction of Anti-inflammatory into Respiratory Tract, Via Natural or Artificial Opening (ICD-10-PCS; principal; 2017-09-22)
DX: J44.0 Chronic obstructive pulmonary disease with (acute) lower respiratory infection (principal); Z68.41 Body mass index [BMI] 40.0-44.9, adult; I10 Essential (primary) hypertension; J98.11 Atelectasis; J44.1 Chronic obstructive pulmonary disease with (acute) exacerbation; J20.9 Acute bronchitis, unspecified; E66.01 Morbid (severe) obesity due to excess calories; D72.828 Other elevated white blood cell count; H61.22 Impacted cerumen, left ear; F17.210 Nicotine dependence, cigarettes, uncomplicated; Z88.1 Allergy status to other antibiotic agents